=== PATIENT | female | born 1955 | race Caucasian/White ===

== ENCOUNTER → 2017-02-23 | Outpatient (CLI) | payer BC | LOC: MC.RAD 10:20 | DX: Z12.31 Encounter for screening mammogram for malignant neoplasm of breast (principal) ==

== ENCOUNTER → 2018-03-29 | Outpatient (CLI) | payer BC | LOC: MC.RAD 15:00 | DX: Z12.31 Encounter for screening mammogram for malignant neoplasm of breast (principal); N63.20 Unspecified lump in the left breast, unspecified quadrant; N63.10 Unspecified lump in the right breast, unspecified quadrant ==

== ENCOUNTER → 2018-04-01 | Outpatient (CLI) | payer BC | LOC: MC.RAD 10:19 | DX: N63.10 Unspecified lump in the right breast, unspecified quadrant (principal); N60.02 Solitary cyst of left breast | CPT/HCPCS: G0279 ==

== ENCOUNTER → 2018-04-05 | Outpatient (CLI) | payer BC | LOC: MC.RAD 09:49 | DX: N63.10 Unspecified lump in the right breast, unspecified quadrant (principal); Z98.82 Breast implant status ==

== ENCOUNTER → 2019-04-04 | Outpatient (CLI) | payer BC | LOC: MC.RAD 11:45 | DX: Z12.31 Encounter for screening mammogram for malignant neoplasm of breast (principal); R92.0 Mammographic microcalcification found on diagnostic imaging of breast ==

== ENCOUNTER → 2019-04-12 | Outpatient (CLI) | payer BC | LOC: MC.RAD 14:00 | DX: R92.0 Mammographic microcalcification found on diagnostic imaging of breast (principal) | CPT/HCPCS: G0279 ==

== ENCOUNTER → 2019-04-26 | Outpatient (CLI) | payer BC | LOC: MC.RAD 09:06 | DX: N63.10 Unspecified lump in the right breast, unspecified quadrant (principal); N64.89 Other specified disorders of breast; R92.0 Mammographic microcalcification found on diagnostic imaging of breast; Z98.82 Breast implant status ==

== ENCOUNTER 2019-05-08 06:41 | Day surgery (SDC) | payer BC ==
[~2019-05-08] VITALS: Ht 165.1 cm; Wt 59.6 kg
[2019-05-08] VITALS (9 sets, daily range): BP systolic 99–165; BP diastolic 56–86; PULSE 70–86; TEMP 97.5–98.4
[2019-05-08] MEDS ORDERED: ZYRTEC5 MG PO (07:58)
--- NOTE | 2019-05-08 12:05 | NUR ---
Patient to OR.
--- NOTE | 2019-05-08 16:42 | NUR ---
Patient alert and oriented, answers questions appropriately. See assessment. Left/right breast incisions with dressings CDI. Bilateral breast CAROLANN drains compressed, scant amount drainage noted in bulb. Post op exercises reviewed. No c/o at this time.
--- NOTE | 2019-05-08 20:45 | NUR ---
Pt. sitting up in bed at this time. Pt. is A&OX3, assessment complete. INT to rt. wirst patent. Dressings to bilateral breasts, CDI. CAROLANN drains noted bilaterally. serosanguineous drainage noted. Pt. reports pain at a 3 on pain scale with movement and denies need for pain meds at this time.
[2019-05-09 04:58] VITALS: BP 111/51; PULSE 83; TEMP 97.9
[2019-05-09 07:25] VITALS: BP 125/65; PULSE 82; TEMP 98.3
--- NOTE | 2019-05-09 09:07 | NUR ---
Patient alert and oriented, answers questions appropriately. See assessment. Bilateral mastectomy dressing CDI, CAORLANN drains with scant amount of serosaguinous drainage noted. Post op exercises reviewed. No c/o at this time.
--- NOTE | 2019-05-09 11:07 | NUR ---
First visit from the brake lining maker. No needs right now.
[2019-05-09 11:12] VITALS: BP 129/57; PULSE 77; TEMP 98.8
--- NOTE | 2019-05-09 11:52 | NUR ---
[employer] met with the patient and patient's , Jong ([phone]) to complete intake and discuss discharge planning. Patient lives in [place] with her and sees Dr. Mccrary for primary care. When patient needs medications, she states she can get them at [facility]. Patient states she is independent with ADLS and does not have any DME. Patient states she has [facility], which is her Jong. Patient plans to return home upon discharge.
[2019-05-09] MEDS ORDERED: ULTRAM 50MG TAB50 MG PO (13:29)
--- NOTE | 2019-05-09 16:01 | NUR ---
Discharge instructions reviewed with patient and spouse, verbalized understanding. Discharged via wheelchair to auto/home with family at 1550.
== END 2019-05-09 15:50 | disposition home or self-care (01) ==
LOC: SDCO 06:41 → SURG 15:55 → SDCO 05-09 15:50
DX: C50.411 Malignant neoplasm of upper-outer quadrant of right female breast (principal); C50.512 Malignant neoplasm of lower-outer quadrant of left female breast; Z17.0 Estrogen receptor positive status [ER+]; Z91.048 Other nonmedicinal substance allergy status; Z88.1 Allergy status to other antibiotic agents; Z83.3 Family history of diabetes mellitus; Z80.3 Family history of malignant neoplasm of breast; Z80.51 Family history of malignant neoplasm of kidney; R42 Dizziness and giddiness
CPT/HCPCS: OP; A9541; J0690; J1100; J2175; J2250; J2405; J2704; J3010; J7120; Q9968

== ENCOUNTER 2024-01-04 07:41 | Day surgery (SDC) | payer MEDICARE ==
[~2024-01-04] VITALS: Ht 165.1 cm; Wt 58.3 kg
[~2024-01-04 07:41] MED LIST: Ondansetron 4 MG/2 ML VIAL IV PRN; ULTRAM 50MG TAB50 MG PO; ZYRTEC5 MG PO
[2024-01-04] MEDS ORDERED: ARIMIDEX1 MG PO (08:14)
[2024-01-04] MEDS ORDERED: CALCIUM 600600 MG PO (08:15)
[2024-01-04] MEDS ORDERED: MAGNESIUM200 MG PO (08:16)
[2024-01-04] MEDS ORDERED: VITAMIN D362.5 MC1 PO (08:17)
[2024-01-04] MEDS ORDERED: LR 1,000 ML IV SCH (08:45)
[2024-01-04] MEDS ORDERED: Lidocaine PF 2% (20 MG/ML) 5 ML VIAL ONE (08:45)
[2024-01-04 09:15] VITALS: BP 117/71; PULSE 74; TEMP 97.9
[2024-01-04 09:30] VITALS: BP 153/77; PULSE 68
[2024-01-04 09:45] VITALS: BP 145/73; PULSE 68
--- NOTE | 2024-01-04 10:00 | NUR ---
0915- Pt arrived to [facility] - ambulated from cart to chair with standby assist 0921- pt tolerating po intake well - only minor abd pain similar to baseline discomfort - MD Jaden aware, no orders received 0935- MD Jaden in room with pt and 0955- pt verbalizes understanding discharge information 1005- pt escorted out to husbands vehicle via wheelchair
[2024-01-04 10:47] VITALS: BP 144/71; PULSE 78; TEMP 97.8
== END 2024-01-04 10:05 | disposition home or self-care (01) ==
LOC: SDCO 07:41
DX: Z12.11 Encounter for screening for malignant neoplasm of colon (principal); K64.4 Residual hemorrhoidal skin tags; K60.2 Anal fissure, unspecified; K21.9 Gastro-esophageal reflux disease without esophagitis
CPT/HCPCS: J2704; J7120